=== PATIENT | male | born 1950 | race Hispanic/Latino ===

== ENCOUNTER 2024-01-12 18:47 | Emergency (ER) | payer MEDICARE ==
[~2024-01-12] VITALS: Ht 170.2 cm; Wt 93.0 kg
[2024-01-12 18:58] VITALS: TEMP 98.9
[2024-01-12 19:17] LABS: BASOPHILS % 0.1 % (0.0-1.0); EOSINOPHILS % 0.1 % (0.0-6.0); HEMATOCRIT 44.2 % (38.2-49.6); HEMOGLOBIN 14.6 g/dL (14.0-18.0); LYMPHOCYTES # (AUTO) 1.1 (1.0-3.2); LYMPHOCYTES % 7.3 % (18.0-39.1); MEAN CORPUSCULAR HEMOGLOBIN 29.9 pg (28-32); MEAN CORPUSCULAR VOLUME 90.6 fL (81-99); MONOCYTES # (AUTO) 0.5 (0.2-0.8); MONOCYTES % 3.6 % (4.4-11.3); NEUTROPHILS # (AUTO) 12.9 (2.1-6.9); NEUTROPHILS % 88.6 % (38.7-80.0); PLATELET COUNT 353 x10e3/uL (140-360); RED BLOOD COUNT 4.88 x10e6/uL (4.3-5.7); RED CELL DISTRIBUTION WIDTH 13.4 % (11.7-14.4); WHITE BLOOD COUNT 14.59 x10e3/uL (4.8-10.8)
[2024-01-12 19:45] LABS: ALBUMIN 3.2 g/dL (3.5-5.0); ALBUMIN/GLOBULIN RATIO 0.9 (0.8-2.0); ANION GAP 18.9 mmol/L (8-16); BILIRUBIN,TOTAL 0.5 mg/dL (0.2-1.2); CALCIUM 9.4 mg/dL (8.4-10.2); CREATININE, SERUM 1.29 mg/dL (0.72-1.25); POTASSIUM 4.9 mmol/L (3.5-5.1); TOTAL PROTEIN 6.8 g/dL (6.5-8.1)
[2024-01-12] MEDS: Vancomycin IV 1 GM in SODIUM CHLORIDE 0.9% 250ML 250 ML IV ONE (20:24)
[2024-01-12 21:00] VITALS: PULSE 67; RESP 20
[2024-01-13 00:16] VITALS: BP 138/74; O2SAT 99
== END 2024-01-12 23:30 | disposition home or self-care (01) ==
LOC: EDSEX 18:47 → ER 18:55
DX: M46.26 Osteomyelitis of vertebra, lumbar region (principal); M46.46 Discitis, unspecified, lumbar region; I10 Essential (primary) hypertension
CPT/HCPCS: 36415; 80053; 85025; 87040; 99284; J2543; J3370; J7050